=== PATIENT | male | born 2000 | race African-American/Black ===

== ENCOUNTER 2022-06-03 18:02 | Emergency (ER) | payer OTHER ==
[2022-06-03 19:30] VITALS: PULSE 75; O2SAT 99
--- NOTE | 2022-06-03 19:34 | ERPHSYRPT ---
- History of Present Illness Time Seen by Provider: 06/03/22 19:29 Source: patient Exam Limitations: no limitations Patient Subjective Stated Complaint: Pt reports "my back teeth on the bottom have been hurting bad for about a week or two." Triage Nursing Assessment: Pt alert and oriented x3. No apparent respiratory distress. Skin w/p/d. Ambulated to cot without difficulty. No bleeding/decay noted on gums. Last tooth in very back on bilat sides appear to be just under the gum. Physician History: pt has impacted wisdom teeth on all 4 locations with tender to palp rt upper no fluctuances or pointing abscess to drain on exam. swallowing OK no pharygeal swelling neck nontender. nontender digastric and floor of mouth. Pt advised of need to see dentist earlier and he understands. discussed tX ab AND PAIN CONTROL ON otc MEDS and he agrees, and does not wish further w/u in ER at this time but understands may progress and need to return or have emergent Tx later and has the [place] to understand and make these c hoices. abd nontender . chest clear. Timing/Duration: gradual onset Severity: moderate ENT Location: dental Prearrival Treatment: over the counter meds Modifying Factors: Improves With: nothing Associated Symptoms: denies symptoms Allergies/Adverse Reactions: amphetamine [From Adderall] Adverse Reaction (Verified 06/03/22 19:21) bee pollen Adverse Reaction (Verified 06/03/22 19:21) dextroamphetamine [From Adderall] Adverse Reaction (Verified 06/03/22 19:21) Hx Tetanus, Diphtheria Vaccination/Date Given: No Hx Influenza Vaccination/Date Given: No Hx Pneumococcal Vaccination/Date Given: No Travel Risk - International Travel Have you traveled outside of the country in past 3 weeks: No - Coronavirus Screening Are you exhibiting any of the following symptoms?: No Close contact with a COVID-19 positive Pt in past 14-21 Days: No - Vaccine Status Have you recieved a Covid-19 vaccination: Yes [employer] Associate: [employer] - Review of Systems Constitutional: No Fever, No Chills Eyes: No Symptoms Ears, Nose, & Throat: Other (dental pain) Respiratory: No Cough, No Dyspnea Cardiac: No Chest Pain, No Edema, No Syncope Abdominal/Gastrointestinal: No Abdominal Pain, No Nausea, No Vomiting, No Diarrhea Genitourinary Symptoms: No Dysuria Musculoskeletal: No Back Pain, No Neck Pain Skin: No Rash Neurological: No Dizziness, No Focal Weakness, No Sensory Changes Psychological: No Symptoms Endocrine: No Symptoms Hematologic/Lymphatic: No Symptoms Immunological/Allergic: No Symptoms All Other Systems: Reviewed and Negative - Past Medical History Pertinent Past Medical History: Yes Cardiac History: Other Other Medical History: heart murmur - Past Surgical History Past Surgical History: Yes Other Surgical History: tubes in ears - Social History Smoking Status: Never smoker Exposure to second hand smoke: Yes Drug Use: none Patient Lives Alone: No - Nursing Vital Signs Nursing Vital Signs: Initial Vital Signs Temperature 98.7 F 06/03/22 19:21 Pulse Rate 75 06/03/22 19:21 Respiratory Rate 15 06/03/22 19:21 Blood Pressure 165/101 06/03/22 19:21 O2 Sat by Pulse Oximetry 99 06/03/22 19:21 Pain Scale Pain Intensity 7 - Physical Exam General Appearance: no apparent distress, alert Eye Exam: bilateral eye: PERRL, EOMI Ear Exam: bilateral ear: auricle normal, canal normal, TM normal Nasal Exam: normal inspection Throat Exam: pharynx normal, dental tenderness, moist mucus membranes, No excessive drooling, No mandibular swelling, No maxillary swelling, No pharynx swelling, No tongue swollen, No tonsillar exudate, No tonsillar swelling, No trismus, No uvula swelling, No voice changes Neck Exam: normal inspection, non-tender, supple, full range of motion, trachea midline Cardiovascular/Respiratory Exam: chest non-tender, normal breath sounds, regular rate/rhythm Abdominal Exam: non-tender, soft Neurologic Exam: alert, oriented x 3, sensation nml, No motor deficits Skin Exam: normal color, warm, dry SpO2 Interpretation: normal SpO2: 99 O2 Delivery: Room Air - Course Nursing assessment & vital signs reviewed: Yes - Progress Progress: improved, re-examined Counseled pt/family regarding: diagnosis, need for follow-up, smoking cessation Medical Desision Making - Discussion of managment Reviewed:: Need for additional workup Agreed on:: Treatment plan, need for follow-up - Departure Departure Disposition: Home Clinical Impression: [place] tooth impaction Condition: Good Critical Care Time: No Instructions: Dental Pain (DC), Impacted Tooth (DC), High Blood Pressure (DC) Additional Instructions: See your dentist for followup ANN, you probably need the wisdom teeth removed. Use over the counter alleve or other. Return meantime if not improving, vomiting, trouble swallowing , face or throat swelling or other concerns. your blood pressure is a little high but may be due to pain partly. see your DrKrystin to consider beginning treatment for blood pressure also this week. Prescriptions: Cephalexin Mh 500 mg [Keflex 500 mg] 500 mg PO QID #40 cap
[2022-06-03] MEDS ORDERED: KEFLEX 500 MG PO ONE (19:43)
[2022-06-03] MEDS ORDERED: NORCO 5/325 MG PO ONE (19:43)
[2022-06-03] MEDS ORDERED: NORCO 5/325 MG ONE (19:45)
[2022-06-03] MEDS ORDERED: KEFLEX 500 MG ONE (19:45)
[2022-06-03 20:02] VITALS: BP 155/92
== END 2022-06-03 19:54 | disposition home or self-care (01) ==
LOC: ED 18:02
DX: K01.1 Impacted teeth (principal); K08.89 Other specified disorders of teeth and supporting structures
CPT/HCPCS: 99282; A9270-GY

== ENCOUNTER 2023-11-25 02:18 | Emergency (ER) | payer MEDICAID, OTHER ==
[2023-11-25 02:56] VITALS: TEMP 98.5
[2023-11-25 03:14] VITALS: O2SAT 99
--- NOTE | 2023-11-25 04:04 | ERPHSYRPT ---
- History of Present Illness Time Seen by Provider: 11/25/23 03:00 Source: patient Exam Limitations: no limitations Patient Subjective Stated Complaint: rt hand swelling Triage Nursing Assessment: Pt ambulated into ER without difficulty, spouse at bedside. Pt c/o rt hand swelling. Pt was crawling under a camper trailer hooked to a truck hitch to catch a cat, and when he pulled his hand out it was swollen. Rt hand to thumb pad area is swollen, no redness or warmth noted. Pt is able to move it without difficulty, cap refill <3 secs. Physician History: 23yo m presents via private vehicle for swelling of right thenar eminence. 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 Pt states the hand is minimally painful, states the swelling prevents him from making a closed fist. Pt reports good sensation in all fingers, denies any pain at the wrist or fingers. Pt reports he is up to date on tetanus vaccinations. Occurred: just prior to arrival Method of Injury: other (scraped) Quality: constant Severity of Pain-Max: mild Severity of Pain-Current: mild Extremities Pain Location: hand: right Modifying Factors: Improves With: nothing Associated Symptoms: none Allergies/Adverse Reactions: amphetamine [From Adderall] Adverse Reaction (Verified 11/25/23 02:57) bee pollen Adverse Reaction (Verified 11/25/23 02:57) dextroamphetamine [From Adderall] Adverse Reaction (Verified 11/25/23 02:57) Home Medications: No Reportable Medications [No Reported Medications] 11/25/23 [History] Hx Tetanus, Diphtheria Vaccination/Date Given: Yes Hx Influenza Vaccination/Date Given: No Hx Pneumococcal Vaccination/Date Given: No Travel Risk - International Travel Have you traveled outside of the country in past 3 weeks: No - Emerging Infectious Disease Are you exhibiting symptoms associated with any current EIDs: No - Review of Systems Constitutional: No Symptoms Respiratory: No Symptoms Cardiac: No Symptoms Abdominal/Gastrointestinal: No Symptoms Musculoskeletal: Injury, Joint Swelling Skin: Skin Lesions, No Cellulitis, No Rash - Past Medical History Pertinent Past Medical History: Yes Cardiac History: Other Psycho-Social History: Attention Deficit Disorder Other Medical History: heart murmur, autism - Past Surgical History Past Surgical History: Yes Gastrointestinal: Appendectomy Other Surgical History: tubes in ears - Social History Smoking Status: Former smoker Exposure to second hand smoke: Yes Drug Use: marijuana Patient Lives Alone: No - Social Determinants of Health Will the patient participate in the screening: Yes Do you worry about a steady place to live?: No Do you have any problems with any of the following?: No known problems In the past 12 months,have you had to go without utilities?: No Transportation Issues: No Has anyone in your support network made you feel unsafe?: No Have you or anyone in your house had to go without enough: No - Nursing Vital Signs Nursing Vital Signs: Initial Vital Signs Temperature 98.5 F 11/25/23 02:55 Pulse Rate 100 H 11/25/23 02:55 Respiratory Rate 17 11/25/23 02:55 Blood Pressure 177/87 11/25/23 02:55 O2 Sat by Pulse Oximetry 100 11/25/23 02:55 Pain Scale Pain Intensity 4 - Physical Exam General Appearance: no apparent distress, alert Cardiovascular/Respiratory Exam: chest non-tender, normal breath sounds, regular rate/rhythm Elbow/Forearm Exam: normal inspection, non-tender, no evidence of injury, normal ROM Wrist Exam: normal inspection, non-tender, no evidence of injury, normal ROM Hand Exam: abrasions (small abrasion over right thenar eminence, no puncture wound), swelling (swelling over thenar eminence, no discoloration, unable to fully make closed fist w/ thumb), No bone tenderness, No deformity, No infection, No laceration, No nail injury, No soft tissue tenderness Neuro/Tendon Exam: normal sensation, normal motor functions, normal tendon functions Mental Status Exam: alert, oriented x 3, cooperative Skin Exam: normal color, warm, dry, abrasion, No rash SpO2 Interpretation: normal SpO2: 99 O2 Delivery: Room Air Ordered Tests: Active Orders 24 hr Category Date Time Status Cold Application STAT Care 11/25/23 03:10 Active HAND (MINIMUM 3 VIEWS) Stat Exams 11/25/23 03:10 Taken - Progress Progress: improved Progress Note: 11/25/23 04:05 given ice for swollen hand imaging negative for fx swelling resolved significantly w/ ice pt able to make full fist, neurovascularly intact, no pain plan for discharge home w/ PCP follow up recommend ice/tylenol/ibuprofen for discomfort return to ED if: lose sensation in right hand, lose ability to use right hand, hand becomes blue/purple in color Counseled pt/family regarding: rad results Medical Desision Making - Diagnostic Testing Diagnostic test were ordered, analyzed, and reviewed by me: Yes Radiological Interpretation: Interpreted by me, Reviewed by me - Risk of complications Minimal Risk: Minimal risk of morbidity - Departure Departure Disposition: Home Clinical Impression: Swelling of right hand Condition: Stable Critical Care Time: No Referrals: DOCTOR,NO FAMILY [Primary Care Provider] - Follow up/PCP as directed Additional Instructions: plan for discharge home w/ PCP follow up recommend ice/tylenol/ibuprofen for discomfort return to ED if: lose sensation in right hand, lose ability to use right hand, hand becomes blue/purple in color
[2023-11-25 04:15] VITALS: BP 141/81; PULSE 76; RESP 18
--- NOTE | 2023-11-25 08:44 | XRAY ---
Indication: Swelling. Comparison: None 3 view right hand obtained. No bony, articular, or soft tissue abnormalities.
== END 2023-11-25 04:17 | disposition home or self-care (01) ==
LOC: ED 02:18
DX: M79.89 Other specified soft tissue disorders (principal)
CPT/HCPCS: 73130; 99282

== ENCOUNTER 2024-01-06 22:12 | Emergency (ER) | payer MEDICAID ==
[2024-01-06 22:18] VITALS: TEMP 98.5
[2024-01-06] MEDS: TYLENOL 325 MG PO ONE (22:31)
[2024-01-06] MEDS ORDERED: TYLENOL 325 MG ONE (22:31)
--- NOTE | 2024-01-06 22:32 | ERPHSYRPT ---
- History of Present Illness Time Seen by Provider: 01/06/24 22:25 Source: patient Exam Limitations: no limitations Physician History: 23-year-old male presents to emergency department EMS for evaluation of acute pain at a postsurgical site. Patient states he had a laparoscopic appendectomy approximately 2 months ago. Today patient was lifting his 2-year-old child. Child weighs approximately 30 pounds. Patient felt a sudden onset of sharp pain at the umbilical trocar site. Injury occurred just prior to arrival. Pain has significantly improved since arrival. Patient currently rates his pain 3 out of 10. No other symptomology. No nausea no vomiting. Patient is still passing flatulence. Normal bowel movement. No trauma. Patient otherwise feels well. He voices no other complaints or concerns at this time. Portions of this note were created with voice recognition technology. There may be grammatical, spelling, punctuation or sound alike errors Timing/Duration: today Severity: moderate Associated Symptoms: denies symptoms Allergies/Adverse Reactions: amphetamine [From Adderall] Adverse Reaction (Verified 01/06/24 22:28) bee pollen Adverse Reaction (Verified 01/06/24 22:28) dextroamphetamine [From Adderall] Adverse Reaction (Verified 01/06/24 22:28) Home Medications: No Reportable Medications [No Reported Medications] 11/25/23 [History] Hx Tetanus, Diphtheria Vaccination/Date Given: Yes Hx Influenza Vaccination/Date Given: No Hx Pneumococcal Vaccination/Date Given: No Travel Risk - Emerging Infectious Disease Are you exhibiting symptoms associated with any current EIDs: No - Review of Systems Constitutional: No Symptoms, No Fever, No Chills Eyes: No Symptoms Ears, Nose, & Throat: No Symptoms Respiratory: No Symptoms, No Cough, No Dyspnea Cardiac: No Symptoms, No Chest Pain, No Edema, No Syncope Abdominal/Gastrointestinal: No Symptoms, No Abdominal Pain, No Nausea, No Vomiting, No Diarrhea Genitourinary Symptoms: No Symptoms, No Dysuria Musculoskeletal: No Symptoms, No Back Pain, No Neck Pain Skin: No Symptoms, No Rash Neurological: No Symptoms, No Dizziness, No Focal Weakness, No Sensory Changes Psychological: No Symptoms Endocrine: No Symptoms Hematologic/Lymphatic: No Symptoms Immunological/Allergic: No Symptoms All Other Systems: Reviewed and Negative - Past Medical History Pertinent Past Medical History: Yes Cardiac History: Other Psycho-Social History: Attention Deficit Disorder Other Medical History: heart murmur, autism - Past Surgical History Past Surgical History: Yes Gastrointestinal: Appendectomy Other Surgical History: tubes in ears - Social History Smoking Status: Former smoker Exposure to second hand smoke: Yes Drug Use: marijuana Patient Lives Alone: No - Social Determinants of Health Will the patient participate in the screening: Yes Do you worry about a steady place to live?: No In the past 12 months,have you had to go without utilities?: No Transportation Issues: No Has anyone in your support network made you feel unsafe?: No Have you or anyone in your house had to go without enough: No - Nursing Vital Signs Nursing Vital Signs: Initial Vital Signs Temperature 98.5 F 01/06/24 22:17 Pulse Rate 58 L 01/06/24 22:17 Respiratory Rate 17 01/06/24 22:17 Blood Pressure 150/93 01/06/24 22:17 O2 Sat by Pulse Oximetry 100 01/06/24 22:17 Pain Scale Pain Intensity 3 - Physical Exam General Appearance: no apparent distress, alert Eye Exam: PERRL/EOMI, eyes nml inspection Ears, Nose, Throat Exam: normal ENT inspection, moist mucous membranes Neck Exam: normal inspection, non-tender, supple, full range of motion Respiratory Exam: normal breath sounds, lungs clear, airway intact, No respiratory distress Cardiovascular Exam: regular rate/rhythm, normal heart sounds, normal peripheral pulses Gastrointestinal/Abdomen Exam: soft, normal bowel sounds, other (Pain at the umbilical trocar site. The site appears to be intact. No redness no signs of hernia formation. No bulge. No cellulitis. No drainage. The area appears to be intact healing well without complication.), No tenderness, No mass Back Exam: normal inspection, normal range of motion, No CVA tenderness, No vertebral tenderness Extremity Exam: normal inspection, normal range of motion, pelvis stable Neurologic Exam: alert, oriented x 3, cooperative, normal mood/affect, nml cerebellar function, nml station & gait, sensation nml, No motor deficits Skin Exam: normal color, warm, dry, No rash Lymphatic Exam: No adenopathy SpO2 Interpretation: normal SpO2: 100 O2 Delivery: Room Air - Course Nursing assessment & vital signs reviewed: Yes Ordered Tests: Medication Summary Discontinued Medications Generic Name Dose Route Start Last Admin Trade Name Freq PRN Reason Stop Dose Admin Acetaminophen 975 mg 01/06/24 22:29 Acetaminophen 325 Mg Tablet PO 01/06/24 22:30 STAT ONE - Progress Progress: improved Progress Note: 23-year-old male with pain at the umbilical trocar site. Pain transiently occurred while lifting his child. Pain is down to a 3 out of 10. Patient received Tylenol for pain control per his request. Physical exam otherwise unremarkable. No indication for further workup. Will discharge home. Patient states he will follow-up with his primary care doctor this week. He will call tomorrow to schedule an appointment. Patient voices no other complaints or concerns at this time. Portions of this note were created with voice recognition technology. There may be grammatical, spelling, punctuation or sound alike errors Complexity of problem addressed is moderate acute complicated. No critical care time. Complexity data reviewed and analyzed is none. No specialized testing ordered. Diagnosis made based on history and physical exam. Risk of complication and or risk of morbidity/mortality patient management is low. Vital stable. Time spent to discharge patient is approximately 5 minutes. Plan of care established for shared decision making. No social determinants of health present to impede follow-up. Portions of this note were created with voice recognition technology. There may be grammatical, spelling, punctuation or sound alike errors 01/06/24 22:35 Counseled pt/family regarding: diagnosis, need for follow-up - Departure Departure Disposition: Home Clinical Impression: Pain at surgical site Condition: Stable Critical Care Time: No Referrals: DOCTOR,NO FAMILY [Primary Care Provider] - Follow up/PCP as directed JALEN MARCANO MD [ACTIVE STAFF] - Follow up/PCP as directed Additional Instructions: Discharge/Care Plan MARIZAAntoniaSANDIP DAKOTAH was seen on 01/06/24 in the Emergency Room. The patient was counseled regarding Diagnosis,Lab results, Imaging studies, need for follow up and when to return to the Emergency Room. Prescriptions given: Discharge Note I have spoken with the patient and/or caregivers. I have explained the patient's condition, diagnosis and treatment plan based on the information available to me at this time. I have answered the patient's and/or caregiver's questions and addressed any concerns. The patient and/or caregivers have as good understanding of the patient's diagnosis, condition and treatment plan as can be expected at this point. The vital signs have been stable. The patient's condition is stable and appropriate for discharge from the emergency department. The patient will pursue further outpatient evaluation with the primary care physician or other designated or consulting physician as outlined in the discharge instructions. The patient and/or caregivers are agreeable to this plan of care and follow-up instructions have been explained in detail. The patient and/or caregivers have received these instruction. The patient/and or caregivers are aware that any significant change in condition or worsening of symptoms should prompt an immediate return to this or the closest emergency department or call 911.
[2024-01-06 22:43] VITALS: BP 149/94; PULSE 65; RESP 18; O2SAT 99
== END 2024-01-06 22:46 | disposition home or self-care (01) ==
LOC: ED 22:12
DX: G89.18 Other acute postprocedural pain (principal)
CPT/HCPCS: 99281; A9270-GY

== ENCOUNTER 2024-03-28 20:03 | Emergency (ER) | payer MEDICAID ==
[2024-03-28 20:30] VITALS: TEMP 98.1
--- NOTE | 2024-03-28 20:44 | ERPHSYRPT ---
- History of Present Illness Time Seen by Provider: 03/28/24 20:31 Patient Subjective Stated Complaint: Pt. states, "About an hour ago, I fell face first off of my ladder. I hit my face on the ground and tried to catch myself with my right hand. Now my hand hurts, my face is swollen and my nose has been bleeding." Triage Nursing Assessment: Pt. A&Ox3, ambulated back to room without difficulty, resp even unlabored, skin p/w/d, swelling noted to rt. side of face. Right hand swollen with deformity noted at wrist joint. Physician History: Pt states about 1 hour ago at home he fell off his ladder(2nd step) into mud hitting the right side of his face on the ground; also c/o bleeding from his nose and right hand/wrist pain. Pt states since the fall he has been spitting up a small amount of blood. Pt denies chest pain, abdominal pain, shortness of air. Pt states he has normal vision in both eyes. Allergies/Adverse Reactions: amphetamine [From Adderall] Adverse Reaction (Verified 01/06/24 22:28) bee pollen Adverse Reaction (Verified 01/06/24 22:28) dextroamphetamine [From Adderall] Adverse Reaction (Verified 01/06/24 22:28) Hx Tetanus, Diphtheria Vaccination/Date Given: No Hx Influenza Vaccination/Date Given: No Hx Pneumococcal Vaccination/Date Given: No Immunizations Up to Date: No Travel Risk - International Travel Have you traveled outside of the country in past 3 weeks: No - Emerging Infectious Disease Are you exhibiting symptoms associated with any current EIDs: No Symptoms: Abdominal Pain - Review of Systems Eyes: No Vision Changes Respiratory: No Dyspnea Cardiac: No Chest Pain Abdominal/Gastrointestinal: No Abdominal Pain Musculoskeletal: Other (right hand/wrist pain today), No Back Pain - Past Medical History Pertinent Past Medical History: Yes Neurological History: No Pertinent History ENT History: No Pertinent History Cardiac History: Other Respiratory History: No Pertinent History Endocrine Medical History: No Pertinent History Musculoskeletal History: No Pertinent History GI Medical History: No Pertinent History History: No Pertinent History Psycho-Social History: No Pertinent History Male Reproductive Disorders: No Pertinent History Other Medical History: heart murmur - Past Surgical History Past Surgical History: Yes Neuro Surgical History: No Pertinent History Cardiac: No Pertinent History Respiratory: No Pertinent History Gastrointestinal: Appendectomy Genitourinary: No Pertinent History Musculoskeletal: No Pertinent History Male Surgical History: No Pertinent History Other Surgical History: tubes in ears - Social History Smoking Status: Never smoker Exposure to second hand smoke: No Drug Use: marijuana Patient Lives Alone: No - Social Determinants of Health Will the patient participate in the screening: Declined to provide - Nursing Vital Signs Nursing Vital Signs: Initial Vital Signs Temperature 98.1 F 03/28/24 20:20 Pulse Rate 81 03/28/24 20:20 Respiratory Rate 18 03/28/24 20:20 Blood Pressure 134/91 03/28/24 20:20 O2 Sat by Pulse Oximetry 96 03/28/24 20:20 Pain Scale Pain Intensity 4 - [place] Coma Score Best Eye Response (Marty): (4) open spontaneously Best Verbal Response (Marty): (5) oriented Best Motor Response ([place]): (6) obeys commands [place] Total: 15 - Physical Exam General Appearance: alert Eye Exam: PERRL/EOMI, other (mild tenderness & edema of right periorbital area) ENT Exam: airway nml, clotted nasal blood (right nare ) Neck Exam: trachea midline Respiratory/Chest Exam: normal breath sounds Cardiovascular Exam: normal heart sounds Gastrointestinal Exam: normal bowel sounds Back Exam: No vertebral tenderness Extremity Exam: tenderness (mild tenderness of the right hand/wrist with mild swelling of the right wrist) Neurologic Exam: alert, cooperative Skin Exam: warm, dry, No cyanosis SpO2 Interpretation: normal SpO2: 96 O2 Delivery: Room Air - Course Nursing assessment & vital signs reviewed: Yes - CT Exams Chest CT Interpretation: Tele-radiologist Report (Normal) Cervical Spine CT Interpretation: Tele-radiologist Report (No evidence of acute fracture, dislocation or significant degenerative changes.) Head CT Interpretation: Tele-radiologist Report (Normal) Maxillofacial Bones CT Interpretation: Tele-radiologist Report (See report.) Ordered Tests: Active Orders 24 hr Category Date Time Status Robe Bandage Application -[facility] STAT Care 03/28/24 22:59 Active IV Insertion STAT Care 03/28/24 20:39 Active CERVICAL SPINE WO CONTRAST [CT] Stat Exams 03/28/24 20:38 Completed CHEST WITHOUT CONTRAST [CT] Stat Exams 03/28/24 21:18 Completed FACIAL BONES WO CONTRAST [CT] Stat Exams 03/28/24 20:37 Completed HAND (MINIMUM 3 VIEWS) Stat Exams 03/28/24 20:41 Taken HEAD WITHOUT CONTRAST [CT] Stat Exams 03/28/24 20:37 Completed WRIST (MIN 3 VIEWS) Stat Exams 03/28/24 20:38 Taken Medication Summary Generic Name Dose Route Start Last Admin Trade Name Chiqui PRN Reason Stop Dose Admin Acetaminophen 650 mg 03/28/24 23:00 Acetaminophen 325 Mg Tablet PO 03/28/24 23:01 STAT ONE Discontinued Medications Generic Name Dose Route Start Last Admin Trade Name Chqiui PRN Reason Stop Dose Admin Ceftriaxone Sodium 1,000 mg 03/28/24 22:45 03/28/24 22:51 Ceftriaxone Sodium 1000 Mg Inj Vial IM 03/28/24 22:46 1,000 mg STAT ONE Administration Ceftriaxone Sodium Confirm 03/28/24 22:51 Ceftriaxone Sodium 1000 Mg Inj Vial Administered 03/28/24 22:52 Dose 1,000 mg .ROUTE .STK-MED ONE Lidocaine HCl Confirm 03/28/24 22:51 Lidocaine Hcl 1% 20 Ml Mdv 20 Ml Ml Administered 03/28/24 22:52 Dose 3 ml .ROUTE .STK-MED ONE - Progress Progress: unchanged Discussed with Dr.: Other (Spoke with Dr. Herndon([id number]) who stated pt may go home. Pt's contact information and results are to be faxed to his office tonight. ) Counseled pt/family regarding: diagnosis, need for follow-up, rad results Medical Desision Making - Diagnostic Testing Diagnostic test were ordered, analyzed, and reviewed by me: Yes Radiological Interpretation: Teleradiologist Report - Departure Departure Disposition: Home Clinical Impression: Right orbital fracture, Sprain of right wrist/hand, Fall Condition: Stable Critical Care Time: No Referrals: CARRIE VARGAS DO [Primary Care Provider] - Follow up/PCP as directed Instructions: Facial Fracture (DC), Wrist Sprain ED Additional Instructions: Wear robe wrap to right wrist for the next [address] Chew's office in the morning for an [phone]. Do not blow your nose. Prescriptions: Cefpodoxime Proxetil 200 mg [Vantin 200 mg] 200 mg PO BID #20 tablet
--- NOTE | 2024-03-28 22:02 | XRAY ---
CLINICAL HISTORY: trauma COMPARISON: None. TECHNIQUE: An axial non-contrast CT scan of the brain was performed from the skull base to the high parietal region. One of the following dose reduction techniques was utilized for this exam: Automated exposure control, adjustment of the mA and/or kV according to patient size, and use of iterative reconstruction. FINDINGS: Brain Parenchyma: Normal attenuation of the cerebral hemispheres, cerebellum, and brainstem. No evidence of acute infarct, hemorrhage, or mass effect. No abnormal areas of hypo- or hyperattenuation. Ventricular System: Ventricles are normal in size and configuration. No evidence of hydrocephalus or ventricular enlargement. Subarachnoid Spaces: Normal sulci and cisterns. No evidence of subarachnoid hemorrhage or extra-axial fluid collections. Cerebellum and Brainstem: Normal size and signal. No masses, lesions, or areas of abnormal signal. Orbits: Please refer to the CT maxillofacial region report for detailed findings on right orbital fractures. Skull: No calvarial fractures. IMPRESSION: Normal CT of the head without contrast. Electronically Signed by: Theresa Chicas MD. (03/28/2024 21:58:28 EST)
--- NOTE | 2024-03-28 22:10 | XRAY ---
CLINICAL HISTORY: trauma COMPARISON: No previous studies are available for comparison. TECHNIQUE: CT scan of the cervical spine was performed without the administration of intravenous contrast. Contiguous axial images were obtained from the skull base to the upper thoracic spine. Coronal and sagittal reformatted images were also reviewed. One of the following dose reduction techniques was utilized for this exam. Automated exposure control, adjustment of the mA and/or kV according to patient size, and use of iterative reconstruction. FINDINGS: Vertebrae: Straightening of the usual cervical lordosis possibly due to muscle spasm. The vertebral bodies are normal in height and alignment. No evidence of acute fracture or dislocation. The cortical and trabecular bone patterns are normal. No signs of lytic or sclerotic lesions. Normal configuration of the posterior elements. Intervertebral Discs: The intervertebral disc spaces are preserved. No evidence of significant disc bulging or herniation. No calcifications or ossifications noted within the discs. Facet Joints: The facet joints are normal without evidence of dislocation, subluxation, or significant degenerative changes. Neural Foramina: The neural foramina are patent bilaterally at all levels. No evidence of foraminal narrowing or nerve root compression. Prevertebral Soft Tissues: The prevertebral soft tissues are normal in thickness without evidence of mass or abnormal fluid collection. Additional Findings: No other significant findings are noted in the visualized soft tissue structures or bony elements. IMPRESSION: No evidence of acute fracture, dislocation, or significant degenerative changes. Electronically Signed by: Theresa Chicas MD. (03/28/2024 22:05:39 EST)
--- NOTE | 2024-03-28 22:16 | XRAY ---
CLINICAL HISTORY: trauma COMPARISON: None. TECHNIQUE: A non-contrast CT scan of the facial bones was performed, with sagittal and coronal multiplanar reconstruction. One of the following dose reduction techniques was utilized for this exam: Automated exposure control, adjustment of the mA and/or kV according to patient size, and use of iterative reconstruction. FINDINGS: Orbits: Acute fractures of lamina papyracea and inferior orbital wall of right orbit. No inferior rectus muscle tenting was noted. A suggestion of diastatic fracture of the lateral wall of the right orbit The left orbit appears unremarkable. Soft Tissues: Extensive soft tissue swelling with subcutaneous emphysema was seen in the right periorbital and premaxillary regions with intraorbital air. Facial bone: Zygomatic arches, nasal bones, and other facial structures are intact. 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 The rest of the paranasal sinuses are clear. Osteomeatal complexes are patent. Nasal Cavity: The nasal cavity is unremarkable. No masses, polyps, or deviations. Hypertrophy of the right inferior nasal turbinate was noted. Maxilla and Mandible: Normal appearance of the maxillary and mandibular bones. No fractures, lytic or sclerotic lesions. Normal dentition without significant periodontal disease. Salivary Glands: Parotid, submandibular, and sublingual glands are normal. No evidence of sialadenitis or masses. Temporomandibular Joints (TMJ): Normal appearance of the TMJ bilaterally. No evidence of joint effusion, degenerative changes, or dislocation. IMPRESSION: 1. Acute fractures of lamina papyracea and inferior orbital wall of right orbit. No inferior rectus muscle tenting was noted. 2. A suggestion of diastatic fracture of the lateral wall of the right orbit. 3. Extensive soft tissue swelling with subcutaneous emphysema was seen in the right periorbital and premaxillary regions with intraorbital air. 4. 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 [facility] was called at [phone] at 10:10 PM EST, 03/28/2024 and Deena(RN) was informed regarding the presence of Significant Medical Findings on the report. She confirmed that she'd inform the physician. Electronically Signed by: Theresa Chicas MD. (03/28/2024 22:11:46 EST)
--- NOTE | 2024-03-28 22:20 | XRAY ---
CLINICAL HISTORY: coughing up blood COMPARISON: None. TECHNIQUE: Contiguous axial CT images of the chest were acquired without administration of intravenous contrast. Coronal and sagittal reconstructions were obtained. One of the following dose reduction techniques were utilized for this exam: Automated exposure control, adjustment of the mA and/or kV according to patient size, use of iterative reconstruction. FINDINGS: Lungs: The lung parenchyma is clear with no evidence of consolidation, collapse, or focal lesions. No pulmonary nodules or masses are identified. No evidence of interstitial lung disease or emphysema. No pleural effusion or pleural thickening. Mediastinum: The mediastinum is normal in size and contour. No mediastinal mass or abnormal lymphadenopathy. The heart size is within normal limits. Hilar Structures: The hilar structures appear normal without enlargement or abnormality. Trachea and Main Bronchi: The trachea and main bronchi are patent without evidence of obstruction or abnormality. Chest Wall: The chest wall is unremarkable with no evidence of soft tissue or bony abnormalities. Upper Abdomen: Visualized portions of the liver, spleen, adrenal glands, and kidneys are unremarkable. Bones: Visualized osseous structures are normal, no evidence of fracture or lytic/sclerotic lesions. IMPRESSION: Normal CT of the chest without contrast. Electronically Signed by: Theresa Chicas MD. (03/28/2024 22:15:33 EST)
[2024-03-28] MEDS ORDERED: Rocephin 1000 MG INJ ONE (22:51)
[2024-03-28] MEDS: Rocephin 1000 MG INJ IM ONE (22:51)
[2024-03-28] MEDS ORDERED: XYLOCAINE 1% HCL 20 ML MDV ONE (22:51)
[2024-03-28] MEDS ORDERED: TYLENOL 325 MG ONE (23:02)
[2024-03-28] MEDS: TYLENOL 325 MG PO ONE (23:03)
[2024-03-28 23:12] VITALS: BP 124/80; PULSE 75; RESP 20
[2024-03-28 23:14] VITALS: O2SAT 96
--- NOTE | 2024-03-29 08:32 | XRAY ---
Indication: Pain following fall. Comparison: None 3 view right hand obtained. No bony, articular, or soft tissue abnormalities.
--- NOTE | 2024-03-29 08:32 | XRAY ---
Indication: Pain following fall. Comparison: None 3 view right wrist obtained. No bony, articular, or soft tissue abnormalities.
== END 2024-03-28 23:20 | disposition home or self-care (01) ==
LOC: ED 20:03
DX: S02.31XA Fracture of orbital floor, right side, initial encounter for closed fracture (principal); S63.501A Unspecified sprain of right wrist, initial encounter; M79.641 Pain in right hand; M25.531 Pain in right wrist; R04.0 Epistaxis; W11.XXXA Fall on and from ladder, initial encounter
CPT/HCPCS: 70450; 70486; 71250; 72125; 73110; 73130; 96372; 99284; J0696; A9270-GY